=== PATIENT | female | born 1940 | race Caucasian/White ===

== ENCOUNTER → 2016-10-30 | Outpatient (CLI) | payer MEDICARE | END | disposition home or self-care (01) | LOC: PCVCCLINIC 13:00 | PROVIDERS: ATTEND Internal Medicine Cardiovascular Disease | DX: I49.5 Sick sinus syndrome (principal) | CPT/HCPCS: 93280 ==

== ENCOUNTER → 2017-05-07 | Outpatient (CLI) | payer MEDICARE | END | disposition home or self-care (01) | LOC: PCVCCLINIC 13:00 | PROVIDERS: ATTEND Internal Medicine Cardiovascular Disease | DX: E78.00 Pure hypercholesterolemia, unspecified (principal); I49.5 Sick sinus syndrome; Z95.0 Presence of cardiac pacemaker; Z72.0 Tobacco use; Z90.710 Acquired absence of both cervix and uterus; Z79.82 Long term (current) use of aspirin; Z88.1 Allergy status to other antibiotic agents | CPT/HCPCS: 80061; G0463 ==

== ENCOUNTER → 2019-10-10 | Outpatient (CLI) | payer MEDICARE ==
--- NOTE | 2019-10-12 08:39 | PCVCIMAG ---
APPROVED REPORT Study performed: 10/10/2019 09:46:21 EXAM: Comprehensive 2D, Doppler, and color-flow Echocardiogram Patient Location: Echo lab Status: routine BSA: 1.79 HR: 60 bpmBP: 136/84 mmHg Rhythm: NSR Other Information Study Quality: Adequate Indications Pacemaker sick sinus syndrome, PVCs 2D Dimensions IVSd: 10.06 (7-11mm) LVDd: 44.17 mm PWd: 9.45 (7-11mm)Ascending Ao: 33.38 (22-36mm) LVDs: 31.37 (25-40mm) Left Atrium: 35.19 (27-40mm) Aortic Root: 30.43 mm LV Single Plane 4CH: 56.71 % LV Single Plane 2CH: 64.80 % Biplane EF: 61.7 % Volumes Left Atrial Volume (Systole) Single Plane 4CH: 62.43 mLSingle Plane 2CH: 80.51 mL LA ESV Index: 42.00 mL/m2 Aortic Valve AoV Peak Jaswinder.: 1.43 m/s AO Peak Gr.: 8.20 mmHgLVOT Max P.37 mmHg LVOT Max V: 1.04 m/s Mitral Valve E/A Ratio: 1.1 MV Decel. Time: 219.73 ms MV E Max Jaswinder.: 0.67 m/s MV A Jaswinder.: 0.59 m/s IVRT: 128.03 ms Pulmonary Valve PV Peak Jaswinder.: 0.97 m/sPV Peak Gr.: 3.80 mmHg Pulmonary Vein P Vein S: 0.25 m/sP Vein A: 0.23 m/s P Vein D: 0.44 m/sP Vein A Dur.: 124.6 msec P Vein S/D Ratio: 0.57 Tricuspid Valve TR Peak Jaswinder.: 2.55 m/s TR Peak Gr.: 26.05 mmHg Left Ventricle The left ventricle is normal size. There is normal LV segmental wall motion. There is normal left ventricular wall thickness. Left ventricular systolic function is normal. The left ventricular ejection fraction is within the normal range. LVEF is 60-65%. Grade I - abnormal relaxation pattern. Right Ventricle The right ventricle is normal size. The right ventricular systolic function is normal. Pacemaker lead is present in the right ventricle. Atria Left atrium is mild-moderately dilated. The right atrium size is normal. Pacemaker lead is present in the right atrium. Aortic Valve The aortic valve is normal in structure. Trace aortic regurgitation. There is no aortic valvular stenosis. Mitral Valve The mitral valve is normal in structure. Mild mitral regurgitation. No evidence of mitral valve stenosis. Tricuspid Valve The tricuspid valve is normal in structure. Mild tricuspid regurgitation with PAP of 33 mmHg. Pulmonic Valve The pulmonary valve is normal in structure. There is no pulmonic valvular regurgitation. Great Vessels The aortic root is normal in size. IVC is normal in size and collapses >50% with inspiration. Pericardium There is no pericardial effusion. There is no pleural effusion. <Conclusion> The left ventricle is normal size. LVEF is 60-65%. The right ventricle is normal size. Pacemaker lead is present in the right ventricle. Left atrium is mild-moderately dilated. The right atrium size is normal. Pacemaker lead is present in the right atrium. Trace aortic regurgitation. Mild mitral regurgitation. Mild tricuspid regurgitation with PAP of 33 mmHg. The aortic root is normal in size. There is no pericardial effusion.
== END | disposition home or self-care (01) ==
LOC: PCVCIMAG 10:08
PROVIDERS: ATTEND Internal Medicine Cardiovascular Disease
DX: I08.1 Rheumatic disorders of both mitral and tricuspid valves (principal); I49.5 Sick sinus syndrome; I49.3 Ventricular premature depolarization; E78.00 Pure hypercholesterolemia, unspecified; F17.210 Nicotine dependence, cigarettes, uncomplicated; Z95.0 Presence of cardiac pacemaker
CPT/HCPCS: 36415; 80061; 93280; 93306; G0463